=== PATIENT | male | born 1975 | race Caucasian/White ===

== ENCOUNTER 2023-11-12 10:37 | Outpatient (CLI) | payer MEDICARE, MEDICAID, SELFPAY | END 2023-11-12 10:38 | disposition home or self-care (01) | LOC: RAD 10:39 | PROVIDERS: PCP Family Medicine; Visit Provider Family Medicine | DX: M51.36 Other intervertebral disc degeneration, lumbar region (principal); M54.16 Radiculopathy, lumbar region | CPT/HCPCS: 64483; J1100; Q9966 ==